=== PATIENT | female | born 1950 | race Caucasian/White ===

== ENCOUNTER 2020-01-19 00:07 | Observation (INO) ==
[2020-01-19 01:28] LABS: Bacteria,Urine Many per hpf (None-Few); Bilirubin,Urine Negative (Negative); Blood,Urine Negative (Negative); Clarity,Urine Turbid (Clear); Color,Urine Yellow (Yellow); Glucose,Urine (UA) Normal (Normal); Hyaline Casts,Urine Few per lpf (None Seen); Ketones,Urine Negative (Negative); Leukocyte Esterase,Urine Large (Negative); Mucus,Urine Moderate per lpf (None-Few); Nitrite,Urine Negative (Negative); Protein,Urine Trace mg/dL (Neg-Trace); Specific Gravity,Urine 1.024 (1.010-1.025); Squamous Epithelial Cell,Urine Few per hpf (None-Few); Urobilinogen,Urine Normal (Normal); WBC,Urine 50-100 per hpf (0-3)
[2020-01-19 01:35] LABS: Basophils # 0.1 K/mcL (0.0-0.2); Basophils % 0.5 %; Eosinophils # 0.3 K/mcL (0.0-0.6); Eosinophils % 2.6 %; Hematocrit 21.4 % (35.3-44.9); Immature Granulocytes % 0.2 % (0-4); Lymphocytes # 3.2 K/mcL (0.6-4.6); Lymphocytes % 26.4 %; Mean Corpuscular HGB Conc 27.6 g/dL (31.6-35.5); Mean Corpuscular Hemoglobin 17.9 pg (28.0-33.3); Mean Platelet Volume 9.8 fL (9.4-12.4); Monocytes # 1.4 K/mcL (0.0-1.3); Monocytes % 11.2 %; Neutrophils # 7.2 K/mcL (1.6-8.9); Nucleated Red Blood Cells 0.2 /100 WBC (0); Platelet Count 550 K/mcL (140-400); Red Blood Count 3.29 M/mcL (3.82-4.97); Red Cell Distribution Width 17.8 % (11.5-14.5); Segmented Neutrophils % 59.1 %; White Blood Count 12.1 K/mcL (4.3-11.1)
[2020-01-19 01:37] LABS: Hemoglobin 5.9 g/dL (11.5-15.4)
[2020-01-19] MEDS ORDERED: Pantoprazole 40 MG VIAL IVP ONE (01:44)
[2020-01-19 01:46] LABS: Anisocytosis 1+ (Not Present); Microcytosis Present (Not Present); Platelet Estimate Increased (Normal)
[2020-01-19 01:47] LABS: Hypochromasia Present (Not Present); Target Cells 1+ (Not Present)
[2020-01-19 01:55] LABS: BUN/Creatinine Ratio 27 (6-26); Blood Urea Nitrogen 21 mg/dL (8-23); Carbon Dioxide 21 mEq/L (23-29); Chloride 108 mEq/L (98-107); Glucose 103 mg/dL (70-105); Osmolality,Calculated 289 (280-300); Potassium 3.5 mEq/L (3.5-5.1); Sodium 138 mEq/L (136-145); Troponin I < 0.03 ng/mL (< 0.04); eGFR For African Americans > 60 (> 60); eGFR For Non-African Americans > 60 (> 60)
[2020-01-19] MEDS ORDERED: cefTRIAXone 1,000 MG in 0.9 % Sodium Chloride Mini Bag 100 ML IVPB ONE (02:05)
[2020-01-19] MEDS ORDERED: Naloxone 0.4 MG/ML INJ IVP PRN (03:46)
[2020-01-19] MEDS ORDERED: 0.9 % Sodium Chloride 250 ML ONE (06:16)
[2020-01-19] MEDS ORDERED: Ondansetron 4 MG/2 ML VIAL IVP PRN (07:09)
[2020-01-19] MEDS ORDERED: *HR* Labetalol 20 MG/4 ML SYRINGE IVP PRN (07:11)
[2020-01-19] MEDS ORDERED: Lidocaine -MPF 2% 2 ML VIAL ONE (09:30)
[2020-01-19] MEDS ORDERED: *HR* Propofol 200 MG/20 ML VIAL IVP ONE (09:31)
[2020-01-19 11:31] LABS: Immature Granulocytes % 0.3 % (0-4); Mean Platelet Volume 9.5 fL (9.4-12.4); Nucleated Red Blood Cells 0.2 /100 WBC (0); Red Cell Distribution Width 23.9 % (11.5-14.5)
[2020-01-19 11:33] LABS: Basophils # 0.1 K/mcL (0.0-0.2); Basophils % 0.6 %; Eosinophils # 0.3 K/mcL (0.0-0.6); Eosinophils % 3.2 %; Hematocrit 27.1 % (35.3-44.9); Hemoglobin 8.2 g/dL (11.5-15.4); Immature Reticulocyte % 38.4 % (11.0-38.0); Lymphocytes # 1.8 K/mcL (0.6-4.6); Lymphocytes % 20.3 %; Mean Corpuscular HGB Conc 30.3 g/dL (31.6-35.5); Mean Corpuscular Hemoglobin 21.4 pg (28.0-33.3); Mean Corpuscular Volume 70.8 fL (83.0-100.0); Monocytes # 0.9 K/mcL (0.0-1.3); Monocytes % 10.6 %; Neutrophils # 5.7 K/mcL (1.6-8.9); Platelet Count 468 K/mcL (140-400); Red Blood Count 3.83 M/mcL (3.82-4.97); Retculocyte # 0.04 M/mcL (0.05-0.10); Reticulocyte % 1.1 % (1.6-2.8); White Blood Count 8.7 K/mcL (4.3-11.1)
[2020-01-19 11:38] LABS: Prothrombin Time 11.5 Seconds (9.4-12.1)
[2020-01-19 11:41] LABS: Activated Partial Thrombo Time 26.2 Seconds (26.0-36.0)
[2020-01-19 11:51] LABS: BUN/Creatinine Ratio 19 (6-26); Blood Urea Nitrogen 13 mg/dL (8-23); Carbon Dioxide 22 mEq/L (23-29); Chloride 111 mEq/L (98-107); Glucose 92 mg/dL (70-105); Potassium 3.2 mEq/L (3.5-5.1); Sodium 141 mEq/L (136-145); eGFR For African Americans > 60 (> 60); eGFR For Non-African Americans > 60 (> 60)
[2020-01-19 11:52] LABS: % Iron Saturation 9 % (15-50); Alanine Aminotransferase 8 Units/L (7-52); Albumin 3.6 g/dL (3.5-5.7); Albumin/Globulin Ratio 1.1 (1.1-2.2); Alkaline Phosphatase 50 Units/L (34-104); Anisocytosis 1+ (Not Present); Aspartate Amino Transferase 13 Units/L (13-39); Bilirubin,Total 0.9 mg/dL (0.3-1.0); Calcium 8.1 mg/dL (8.6-10.3); Globulin 3.2 g/dL (2.4-3.5); Hypochromasia Present (Not Present); Iron 44 mcg/dL (50-170); Osmolality,Calculated 292 (280-300); Platelet Estimate Normal (Normal); Total Protein 6.8 g/dL (6.4-8.9); Transferrin 334 mg/dL (203-362)
[2020-01-19 11:53] LABS: Microcytosis Present (Not Present); Poikilocytosis 1+ (Not Present)
[2020-01-19 12:11] LABS: Ferritin < 8 ng/mL (10-120)
[2020-01-19] MEDS: Nystatin SUSP 5 ML UD.LIQ PO SCH ×3 (13:31→20:07)
[2020-01-19] MEDS: Iron Sucrose Complex 200 MG in 0.9 % Sodium Chloride 100 ML IVPB SCH (13:36)
[2020-01-19] MEDS ORDERED: SODIUM CHLORIDE/NAHCO3/KCL/PEG 4,000 ML SOLN.RECON PO ONE (17:00)
[2020-01-19 17:32] LABS: Hematocrit 30.5 % (35.3-44.9); Hemoglobin 9.1 g/dL (11.5-15.4)
[2020-01-19] MEDS: Pantoprazole 40 MG VIAL IVP SCH (17:36)
[2020-01-20] MEDS: Pantoprazole 40 MG VIAL IVP SCH (05:25)
[2020-01-20] MEDS ORDERED: *HR* FentaNYL (PF) 100 MCG/2 ML VIAL ONE (07:45)
[2020-01-20] MEDS ORDERED: *HR* Midazolam HCl 5 MG/5 ML VIAL IVP ONE (07:45)
[2020-01-20 08:17] VITALS: BP 95/53
[2020-01-20] MEDS: Nystatin SUSP 5 ML UD.LIQ PO SCH (09:41)
[2020-01-20] MEDS: Iron Sucrose Complex 200 MG in 0.9 % Sodium Chloride 100 ML IVPB SCH (10:02)
[2020-01-20 10:10] LABS: Hematocrit 28.1 % (35.3-44.9); Hemoglobin 8.2 g/dL (11.5-15.4); Mean Corpuscular HGB Conc 29.2 g/dL (31.6-35.5); Mean Corpuscular Hemoglobin 20.4 pg (28.0-33.3); Mean Corpuscular Volume 70.1 fL (83.0-100.0); Mean Platelet Volume 9.5 fL (9.4-12.4); Platelet Count 455 K/mcL (140-400); Red Blood Count 4.01 M/mcL (3.82-4.97); White Blood Count 8.3 K/mcL (4.3-11.1)
[2020-01-20 10:29] LABS: BUN/Creatinine Ratio 9 (6-26); Blood Urea Nitrogen 6 mg/dL (8-23); Calcium 7.8 mg/dL (8.6-10.3); Carbon Dioxide 23 mEq/L (23-29); Chloride 110 mEq/L (98-107); Glucose 92 mg/dL (70-105); Osmolality,Calculated 287 (280-300); Sodium 140 mEq/L (136-145); eGFR For African Americans > 60 (> 60); eGFR For Non-African Americans > 60 (> 60)
[2020-01-20] MEDS ORDERED: Sucralfate 1 GM TABLET PO SCH (11:30)
== END 2020-01-20 12:34 | disposition home or self-care (01) ==
LOC: 3ANU 00:07 → EMEROOARM 00:07 → SUATTDRO 03:00 → 3ANU 04:00
PROVIDERS: ADMIT Student in an Organized Health Care Education/Training Program; ATTEND Family Medicine
PROC: ENDOEBX (2020-01-19 10:00)
PROC: ENDOCBX (2020-01-20 13:00)